=== PATIENT | male | born 1955 | race Caucasian/White ===

== ENCOUNTER 2016-08-17 10:53 | Emergency (ER) | payer OTHER ==
[2016-08-17 11:25] LABS: ABSOLUTE EOSINOPHILS # (AUTO) 0.1 10^3/uL (0.0-0.6); ABSOLUTE LYMPHOCYTES (AUTO) 1.9 10^3/uL (0.5-4.7); ABSOLUTE MONOCYTES (AUTO) 0.8 10^3/uL (0.1-1.4); ABSOLUTE NEUT (AUTO) 6.2 10^3/uL (1.7-8.2); BASOPHILS % (AUTO) 0.5 % (0-2); EOSINOPHILS % (AUTO) 1.4 % (0-6); HEMATOCRIT 46.3 % (37.9-51.0); HEMOGLOBIN 15.4 g/dL (13.5-17.0); HGB HCT DIFFERENCE -0.1; LYMPHOCYTES % (AUTO) 20.9 % (13-45); MEAN CORPUSCULAR HEMOGLOBIN 28.1 pg (27.0-33.4); MEAN CORPUSCULAR HGB CONC 33.2 g/dL (32.0-36.0); MEAN CORPUSCULAR VOLUME 85 fl (80-97); MONOCYTES % (AUTO) 8.7 % (3-13); RED BLOOD COUNT 5.48 10^6/uL (4.35-5.55); RED CELL DISTRIBUTION WIDTH 14.2 % (11.5-14.0); SEGMENTED NEUTROPHILS % (AUTO) 68.5 % (42-78)
[2016-08-17 11:44] LABS: ALANINE AMINOTRANSFERASE 30 U/L (21-72); ALBUMIN 4.2 g/dL (3.5-5.0); ALCOHOL < 10 mg/dL (NONE DETECTED); ALKALINE PHOSPHATASE 54 U/L (38-126); ANION GAP 12 (5-19); ASPARTATE AMINO TRANSFERASE 29 U/L (17-59); BILIRUBIN,TOTAL 0.7 mg/dL (0.2-1.3); BLOOD UREA NITROGEN 17 mg/dL (7-20); CARBON DIOXIDE 20 mmol/L (22-30); CHLORIDE 107 mmol/L (98-107); CREATININE RESULT 1.13 mg/dL (0.52-1.25); GLUCOSE 120 mg/dL (75-110); MAGNESIUM 2.2 mg/dL (1.6-2.3); POTASSIUM 4.1 mmol/L (3.6-5.0); SODIUM 139.2 mmol/L (137-145); TOTAL PROTEIN 6.9 g/dL (6.3-8.2)
[2016-08-17 11:55] LABS: ADD ON TESTING BLD IN LAB ACKNOWLEDGE
--- NOTE | 2016-08-17 11:59 | ER Document Report ---
ED Seizure <CHRISTINA RAMOS - Last Filed: 08/17/16 12:55> - General Mode of Arrival: Medic Information source: Patient - HPI Patient complains to provider of: First seizure. No: History of seizures Preceding symptoms/context: Other - see above Post-ictal symptoms: Confusion Injuries: None Associated Symptoms: Other - see above <APRIL BURNS - Last Filed: 08/17/16 13:03> - General Chief Complaint: Probable Seizure Stated Complaint: POSSIBLE SEIZURE Notes: 60 year old male with history no history of seizures presents to the ED via EMS after having a seizure just prior to arrival. Patient states that he began to feel unwell, shaky, and had some blurry vision so he drove up to a convenience store to get some food. Patient remembers getting a gatorade and walking towards the honey buns, but then doesn't remember anything until waking up in the ambulance confused. Witnesses at the store states that the patient fell to the floor and began having a seizure. Patient states that when he woke up he slowly came around and claims that he is back to normal now. Patient denies any injury. Patient denies eating breakfast and has a history of skipping breakfast. Usually the patient's last meal is dinner the night before at around [id number]. Patient states that he has a history of feeling shaky and explains that these episodes are rare and come around once a couple months. Patient reports that eating food after the onset of these shaky episodes usually resolves them without issue. Patient denies history of any cardiac issues, but states he has a history of hypertension and hyperlipidemia. Patient is currently taking doxycycline for rosacea. Patient's primary care provider is Dr. Cleaning at [facility]. (APRIL BURNS) - Related Data Allergies/Adverse Reactions: No Known Allergies Allergy (Verified 08/17/16 11:24) Past Medical History - General Information source: Patient - Social History Smoking Status: Unknown if Ever Smoked Family History: Reviewed & Not Pertinent - Past Medical History Cardiac Medical History: Reports: Hx Hypercholesterolemia, Hx Hypertension GI Medical History: Reports: Hx Gastroesophageal Reflux Disease Past Surgical History: Reports: Other - Prostate biopsy - Immunizations Hx Diphtheria, Pertussis, Tetanus Vaccination: No <APRIL BURNS - Last Filed: 08/17/16 13:03> Review of Systems - Review of Systems Constitutional: No symptoms reported EENT: See HPI, Blurred vision Cardiovascular: No symptoms reported Respiratory: No symptoms reported Gastrointestinal: No symptoms reported Genitourinary: No symptoms reported Male Genitourinary: No symptoms reported Musculoskeletal: No symptoms reported Skin: No symptoms reported Hematologic/Lymphatic: No symptoms reported Neurological/Psychological: See HPI, Seizure <APRIL BURNS - Last Filed: 08/17/16 13:03> Physical Exam - General General appearance: Alert In distress: None - HEENT Head: Atraumatic, Other - Temporal and Frontal muscles are tender to palpate. No: Normocephalic Eyes: Normal Extraocular movements intact: Yes Pupils: PERRL Neck: Other - posterior cervical muscles are tender to palpate. No: Normal - Respiratory Respiratory status: No respiratory distress Breath sounds: Normal - Cardiovascular Rhythm: Regular Heart sounds: Normal auscultation - Abdominal Inspection: Normal - Back Back: Normal - Extremities General upper extremity: Normal inspection, Normal ROM General lower extremity: Normal inspection, Normal ROM - Neurological Neuro grossly intact: Yes - Psychological Associated symptoms: Normal affect, Normal mood - Skin Skin Temperature: Warm Skin Moisture: Dry Skin Color: Normal <APRIL BURNS - Last Filed: 08/17/16 13:03> - Vital signs Vitals: Temp Resp BP Pulse Ox 97.5 F 20 104/56 L 88 L 08/17/16 11:10 08/17/16 11:10 08/17/16 11:10 08/17/16 11:10 (CHRISTINA RAMOS) (APRIL BURNS) Course - Laboratory Result Diagrams: 08/17/16 11:15 08/17/16 11:15 - Diagnostic Test Radiology reviewed: Image reviewed, Reports reviewed - CT scan does not show any acute process - EKG Interpretation by Ar EKG shows normal: Sinus rhythm, [place], Intervals, QRS Complexes, ST-T Waves Rate: Normal - 76 Rhythm: NSR <CHRISTINA RAMOS - Last Filed: 08/17/16 12:55> - Laboratory Result Diagrams: 08/17/16 11:15 08/17/16 11:15 <APRIL BURNS - Last Filed: 08/17/16 13:03> - Re-evaluation Re-evalutation: 08/17/16 12:33 The patient's history is very suspicious for these episodes being hypoglycemic in nature. EMS reports the initial blood sugar on scene was 76, 30 minutes later is 113. His workup here is unremarkable other than him developing a headache. At this time will recommend that he eats breakfast every morning, and follows up with his primary care provider for further testing. 08/17/16 12:55 After the patient been here a while, he began having a frontal headache. On exam the temporal and frontal scalp muscles are little tender to palpate. He seems surprised when the posterior cervical muscles were very tender to palpate. I suspect this is related to the seizure he had earlier. (CHRISTINA RAMOS) - Vital Signs Vital signs: Temp Pulse Resp BP Pulse Ox 97.5 F 19 124/69 95 08/17/16 11:10 08/17/16 12:01 08/17/16 12:01 08/17/16 12:01 (CHRISTINA RAMOS) (APRIL BURNS) - Laboratory Laboratory results interpreted by me: 08/17/16 08/17/16 08/17/16 11:11 11:15 11:15 RDW 14.2 H Carbon Dioxide 20 L Glucose 120 H POC Glucose 121 H Creatine Kinase Urine Protein Urine Blood 08/17/16 08/17/16 11:15 11:55 RDW Carbon Dioxide Glucose POC Glucose Creatine Kinase 194 H Urine Protein 100 H Urine Blood LARGE H (CHRISTINA RAMOS) (APRIL BURNS) Discharge <CHRISTINA RAMOS - Last Filed: 08/17/16 12:55> <APIRL BURNS - Last Filed: 08/17/16 13:03> - Discharge Clinical Impression: Seizure, Hypoglycemia Additional Instructions: Seizure: You have had a seizure. Seizure disorders (epilepsy) of one sort or another affect about one out of 50 people. The seizure occurs because of abnormal electrical activity in the brain. Seizures may be due to drugs and alcohol, strokes, brain injury, or infection. In the most common form of epilepsy, no cause can be found. You will require further evaluation to determine the cause of your seizure, and to determine whether anti-seizure medication is required. This follow-up testing is important, so please call us if you encounter problems with scheduling of tests or appointments. YOU SHOULD NOT DRIVE until released to do so by your physician. The law requires that seizures be reported to the seasonal delivery driver's license bureau--a seizure while driving could be catastrophic. Call the doctor if seizures recur, or if you develop new symptoms such as fever, severe headache, stiff neck, confusion or increasing sleepiness, weakness or numbness, or visual problems. Hypoglycemia: You MAY have suffered an episode of hypoglycemia (low blood sugar). Typical symptoms of hypoglycemia are shaking, sweating, headache, and confusion. When severe, unconsciousness or seizure may occur. Should you feel symptoms of hypoglycemia again, immediately take some form of sugar such as sweetened juice. As the reaction subsides, eat a complex carbohydrate such as bread. If possible, check your blood sugar using a chemical strip. If episodes are occurring without obvious explanation, contact your physician for further evaluation. //////////////////////////////////////////////////////////////////////////////// /////////////////////////////////////////////////////////////////////////////// I suspect you have been occasionally having hypoglycemic episodes in the mornings and the one today was worse than usual. That could well explain the seizure you had this morning. You should not skip breakfast in the morning. You should eat a snack late in the evening before bedtime. Take Tylenol for your headache today if needed. Follow-up with your doctor this week for further evaluation of your seizure and possible hypoglycemic reactions. Do not drive until you have been more thoroughly evaluated by your primary care provider. RETURN TO THE EMERGENCY ROOM IF ANY NEW OR WORSENING SYMPTOMS. Scribe Attestation: 08/17/16 13:00 I personally performed the services described in the documentation, reviewed and edited the documentation which was dictated to the scribe in my presence, and it accurately records my words and actions. (CHRISTINA RAMOS) Scribe Documentation - Scribe Written by Sudhakar:: Sudhakar Ashford, 08/17/2016 1200 acting as scribe for :: Jazmin <APRIL BURNS - Last Filed: 08/17/16 13:03>
[2016-08-17 12:15] LABS: CREATINE KINASE 194 U/L (55-170)
[2016-08-17 12:26] LABS: APPEARANCE,URINE SLIGHTLY-CLOUDY; BILIRUBIN,URINE NEGATIVE (NEGATIVE); GLUCOSE, URINE NEGATIVE (NEGATIVE); KETONES,URINE NEGATIVE (NEGATIVE); LEUKOCYTE ESTERASE,URINE NEGATIVE (NEGATIVE); NITRITE,URINE NEGATIVE (NEGATIVE); PROTEIN,URINE 100 mg/dL (NEGATIVE); URINE SPECIFIC GRAVITY 1.014; UROBILINOGEN,URINE NEGATIVE mg/dL (<2.0)
[2016-08-17 12:36] LABS: URINE BARBITURATES SCREEN NEGATIVE; URINE METHADONE SCREEN NEGATIVE; URINE OPIATES LOW NEGATIVE; URINE PHENCYCLIDINE SCREEN NEGATIVE
[2016-08-17] MEDS ORDERED: OXYCODONE-ACETAMINOPHEN 5-325 MG TABLET PO ONE (13:01)
[2016-08-17 13:10] VITALS: BP 127/72
--- NOTE | 2016-08-17 21:45 | EKG REPORT ---
SEVERITY:- NORMAL ECG - SINUS RHYTHM : Confirmed by: Heraclio Ibanez 17-Aug-2016 21:43:45
== END 2016-08-17 13:20 | disposition home or self-care (01) ==
LOC: ER 10:53
DX: R56.9 Unspecified convulsions (principal); E16.2 Hypoglycemia, unspecified; R51 Headache; H53.8 Other visual disturbances; E78.00 Pure hypercholesterolemia, unspecified; I10 Essential (primary) hypertension
CPT/HCPCS: 36415; 70450; 80053; 80307; 81001; 82550; 82962; 83735; 84484; 85025; 85379; 93005; 93010; 99285